=== PATIENT | female | born 1985 ===

== ENCOUNTER 2019-09-30 00:52 | Outpatient (CLI) | payer OTHER, SELFPAY ==
[2019-09-30 18:36] LABS: SARS-CoV-2 RNA PCR Negative
== END 2019-09-30 00:53 | disposition home or self-care (01) ==
LOC: ANHCOVIDDT 00:52
PROVIDERS: Visit Provider Surgery Plastic and Reconstructive Surgery
DX: Z01.812 Encounter for preprocedural laboratory examination (principal); Z11.59 Encounter for screening for other viral diseases
CPT/HCPCS: 87635; C9803; U0003

== ENCOUNTER 2019-10-02 11:27 | Day surgery (SDC) | payer OTHER, SELFPAY ==
[2019-09-23 08:54] VITALS: BMI 21.6
[2019-10-02 12:05] VITALS: BP 103/61; PULSE 62; RESP 16; TEMP 37.1; O2SAT 100; BMI 21.8
[2019-10-02] MEDS: LACTATED RINGERS 1,000 ML 30 ML IV CONT ×2 (12:31→14:29)
--- NOTE | 2019-10-02 13:05 | WPDHPUPDATE1 ---
History and Physical Update Update Date/Time: 10/02/19 13:05 History and Physical has been reviewed, including an updated exam of the patient. There are NO changes in the patient's condition. Risks, benefits, and alternatives have been discussed and questions answered. Patient agrees to proceed with procedure.
--- NOTE | 2019-10-02 13:17 | PM.PROC ---
Procedure Note - Detailed Date of procedure: 10/02/19 Pre-op diagnosis: Micromastia Post-op diagnosis: same Procedure performed: Bilateral augmentation mammaplasty Description of procedure: She is here today for bilateral breast augmentation. Previously and again today the risks, benefits, alternatives were discussed in extensive detail. I wanted her to be very realistic about the risks involved as well as expectations. We discussed aftercare and what to monitor for. Made sure answered all of her questions to her satisfaction today and consent was obtained. Marked in the preoperative holding area with their verification. The patient was taken to the operating room placed supine on the operating table. Anesthesia was provided by anesthesiology. A surgical time-out was taken. We cleansed the skin and 1% lidocaine and 0.25% Marcaine with epinephrine was used anesthetize as a field block. She was prepped and draped in a standard sterile fashion. Tegaderm nipple Veloz were placed. A 15 blade used to make an incision along the inframammary fold. Dissection was continued at 45 degree angle until the chest wall as identified. I incised the pectoralis major along its inferior border and completely released the inferior border leaving the medial border intact. I created a subpectoral pocket in the appropriate dimensions based on our preoperative planning for the implant. I then copiously irrigated with saline solution and verified a strict hemostasis. Next the use a triple antibiotic and Betadine containing solution to irrigate the pocket. I washed my gloves with the triple antibiotic and Betadine solution. We washed the implant immediately upon opening it with this solution and only opened it when we needed it. I used implant funnel and no-touch technique. The implant was introduced into the pocket using the funnel. Having verified positioning of the implant this was closed using 2-0 Vicryl followed by 3-0 Monocryl in a running subcuticular 4-0 Monocryl followed by tissue glue. Fluffs, Hoang wrap, and surgical bra were placed. Patient was awoke and taken to PACU without difficulty. All instrument sponge counts were correct at the end of the case. Anesthesia: GLMA Surgeon: Adalid Rea MD Estimated blood loss (mL): 5 Drains: No Packing: No Pathology: none sent Complications: No immediate complications Condition: stable Disposition: PACU Findings: Noreen Reeves Softtouch 335cc Implants Right: REF# [id number] Left: REF# [id number]
--- NOTE | 2019-10-02 13:21 | WPDANESEPPF ---
Anes - Initial Pre Proc Eval Procedure: Operation Date: 10/02/19 13:00 Proposed Procedures p Bilateral Breast Augmentation(Bilateral) - Adalid Rea MD Date/Time: 10/02/19 13:21 Surgeon: Adalid Rea MD Pre Op Diagnosis: Micromastia Patient Data Age: 34 Gender: F Height: 5 ft 5 in Weight: 59.5 kg Last Vital Signs Temp 37.1 C 10/02/19 12:05 Pulse 62 10/02/19 12:05 Resp 16 10/02/19 12:05 BP 103/61 10/02/19 12:05 Pulse Ox 100 10/02/19 12:05 Allergies Allergy/AdvReac Type Severity Reaction Status Date / Time Sulfa (Sulfonamide Allergy Unknown unknown Verified 10/02/19 12:02 Antibiotics) penicillin G AdvReac Unknown unknown Verified 10/02/19 12:02 Home Medications Medication Instructions Recorded Confirmed Type [id number]-btyeguvb 1 tablet PO PRN PRN 09/23/19 09/23/19 History [Excedrin Extra Strength] levonorgestrel [Mirena] 1 device INTRAUTERINE ONCE 09/23/19 10/02/19 History docusate sodium 100 mg capsule 100 mg PO DAILY #14 cap 10/01/19 Rx ondansetron HCl 4 mg tablet 4 mg PO Q8H #28 tablet 10/01/19 Rx carisoprodol 350 mg tablet 350 mg PO TID PRN #21 tablet 10/02/19 Rx oxycodone-acetaminophen 5 mg-325 1 tablet PO Q6H PRN #15 tablet 10/02/19 Rx mg tablet Patient hx anesthesia problems: none Family hx anesthesia problems: none PMFSH Surgical History Surgical History History of tonsillectomy History of wisdom tooth extraction Social History Social History Smoking status: Current every day smoker Tobacco type: e-cigarettes/vaping Alcohol intake: current Drinks per week: 4 Substance use type: does not use Living arrangements: with family Gender identity (if verbalized by the patient): Female Spiritual care concerns: No Anes - Eval Final PreProcedure Day of Procedure 08/13/20 13:21 Patient weight: normal Heart: regular rate and rhythm Lungs: clear to auscultation Airway: Mallampati scale class II Neurological: alert and oriented Last oral intake: >/= 8 hours ASA classification: II Emergent: no Anesthetic plan: proceed Anesthesia type and monitoring: general LMA and standard monitoring Informed Consent: The patient's anesthetic plan and its attendant risks and benefits were discussed with the patient/family/POA. Questions were solicited and answers provided to the satisfaction of the patient/family/POA.
[2019-10-02] MEDS: LIDO 1%/EPINEPHRINE 1:100,000 20 ML VIAL 30 ML INFILTRATE (13:53)
[2019-10-02 14:29] VITALS: BP 104/58; PULSE 74; RESP 10; TEMP 36.4; O2SAT 100
[2019-10-02] MEDS: SCOPOLAMINE 1.5 MG PATCH TRANSDERM (14:30)
[2019-10-02 14:44] VITALS: BP 118/65; PULSE 88; RESP 12; O2SAT 100
[2019-10-02 14:58] VITALS: BP 118/70; PULSE 84; RESP 16; O2SAT 100
[2019-10-02 15:01] VITALS: BP 127/69; PULSE 90; RESP 18; O2SAT 100
[2019-10-02 15:29] VITALS: BP 129/70; PULSE 82; RESP 20; O2SAT 100
--- NOTE | 2019-10-23 07:34 | WPDANESPN ---
Anes - Prog Note Post-Op Date/Time: 10/23/19 07:34 Cardiovascular status: normal Respiratory status: normal Airway patency: baseline Mental status: baseline Post-Op hydration status: normal Vital Signs: Last Vital Signs Temp 36.4 C L 10/02/19 14:29 Pulse 82 10/02/19 15:29 Resp 20 10/02/19 15:29 BP 129/70 10/02/19 15:29 Pulse Ox 100 10/02/19 15:29 Pain Score (VAS): 1 Patient Feedback: Patient satisfied with anesthetic care. Other Findings: late entry
== END 2019-10-02 15:55 | disposition home or self-care (01) ==
PROVIDERS: Visit Provider Surgery Plastic and Reconstructive Surgery
DX: N64.82 Hypoplasia of breast (principal)
CPT/HCPCS: 19325